=== PATIENT | male | born 1940 | race Caucasian/White ===

== ENCOUNTER 2016-05-21 08:11 | Outpatient (CLI) ==
[2016-04-10 12:12] VITALS: BMI 34.8
[2016-05-21] MEDS ORDERED: INFED IVP STA (08:37)
[2016-05-21] MEDS ORDERED: SODIUM CHLORIDE IV ONE (09:30)
[2016-05-21] MEDS ORDERED: INFED IV ONE (09:30)
[2016-05-21 12:51] VITALS: BP 127/72; TEMP 98.2
== END 2016-05-21 08:12 | disposition home or self-care (01) ==
LOC: OPMED 08:11
PROVIDERS: ATTEND Family Medicine
DX: E61.1 Iron deficiency (principal); N18.3 Chronic kidney disease, stage 3 (moderate); D50.9 Iron deficiency anemia, unspecified
CPT/HCPCS: 96365; 96366; 96374; 96376; 99211

== ENCOUNTER 2016-10-19 11:54 | Outpatient (CLI) ==
[2016-04-10 12:12] VITALS: BMI 34.8
[2016-10-19 12:14] LABS: ANION GAP 20.2; BUN/CREATININE RATIO 16.56; CALCIUM 9.3 mg/dL (8.2-10.2); CREATININE 1.69 mg/dL (0.60-1.10); POTASSIUM 4.2 mmol/L (3.5-5.1)
== END 2016-10-19 11:55 | disposition home or self-care (01) ==
LOC: NONPT 11:54
PROVIDERS: ATTEND Family Medicine
DX: I12.9 Hypertensive chronic kidney disease with stage 1 through stage 4 chronic kidney disease, or unspecified chronic kidney disease (principal); N18.9 Chronic kidney disease, unspecified
CPT/HCPCS: 80048

== ENCOUNTER 2016-10-26 11:22 | Outpatient (CLI) ==
[2016-04-10 12:12] VITALS: BMI 34.8
[2016-10-26 13:01] LABS: BUN/CREATININE RATIO 16.37; CALCIUM 9.4 mg/dL (8.2-10.2); CREATININE 1.71 mg/dL (0.60-1.10)
== END 2016-10-26 11:23 | disposition home or self-care (01) ==
LOC: NONPT 11:22
PROVIDERS: ATTEND Family Medicine
DX: L89.92 Pressure ulcer of unspecified site, stage 2 (principal); E11.9 Type 2 diabetes mellitus without complications; J44.9 Chronic obstructive pulmonary disease, unspecified; N18.9 Chronic kidney disease, unspecified
CPT/HCPCS: 80048

== ENCOUNTER 2016-11-03 13:42 | Outpatient (CLI) | payer OTHER ==
[2016-04-10 12:12] VITALS: BMI 34.8
[2016-11-03 14:19] LABS: ANION GAP 16.9; BUN/CREATININE RATIO 13.13; CALCIUM 9.7 mg/dL (8.2-10.2); CREATININE 1.37 mg/dL (0.60-1.10); POTASSIUM 4.9 mmol/L (3.5-5.1)
== END 2016-11-03 13:43 | disposition home or self-care (01) ==
LOC: NONPT 13:42
PROVIDERS: ATTEND Family Medicine
DX: I12.9 Hypertensive chronic kidney disease with stage 1 through stage 4 chronic kidney disease, or unspecified chronic kidney disease (principal); E11.22 Type 2 diabetes mellitus with diabetic chronic kidney disease; N18.9 Chronic kidney disease, unspecified; J44.9 Chronic obstructive pulmonary disease, unspecified
CPT/HCPCS: 80048